=== PATIENT | female | born 1995 | race Caucasian/White ===

== ENCOUNTER 2024-01-19 15:49 | Day surgery (SDC) | payer OTHER ==
[2024-01-19] MEDS ORDERED: LIDOCAINE HCL 1% AMPUL 5 ML IJ ONE (15:50)
[2024-01-19] MEDS ORDERED: BUPIVACAINE 0.5% VIAL IJ ONE (15:50)
[2024-01-19] MEDS ORDERED: Depo-Medrol 40 MG/ML IM ONE (15:50)
[2024-01-19 17:14] LABS: HCG URINE TEST NEGATIVE (NEGATIVE)
--- NOTE | 2024-01-19 19:20 | XRAY ---
Indication: Right hip and greater trochanter bursa injection. Intraoperative fluoroscopy provided for 23 seconds. 2 digital spot image submitted for interpretation demonstrates needle tip projecting lateral to right greater trochanter. Second needle tip lateral to right femur neck. Small amount of contrast injected for all needle tip placement. Correlate with intraoperative findings/report.
--- NOTE | 2024-01-20 09:00 | XRAY ---
23 seconds of fluoroscopy used in surgery for a right intra-articular hip and right greater trochanteric bursa injections.
== END 2024-01-19 18:05 | disposition home or self-care (01) ==
LOC: SDC-PAIN 15:49
PROVIDERS: ATTEND Psychiatry & Neurology Pain Medicine
DX: M16.11 Unilateral primary osteoarthritis, right hip (principal); M70.61 Trochanteric bursitis, right hip; E11.9 Type 2 diabetes mellitus without complications
CPT/HCPCS: 20610; 73502; 77002; 81025; 82947; Q9966

== ENCOUNTER 2024-09-13 14:41 | Day surgery (SDC) | payer OTHER ==
[2024-09-13] MEDS ORDERED: LIDOCAINE HCL 1% 50 MG/5 ML VL IJ ONE (14:42)
[2024-09-13] MEDS ORDERED: BUPIVACAINE 0.5% VIAL IJ ONE (14:42)
[2024-09-13] MEDS ORDERED: Depo-Medrol 40 MG/ML IM ONE (14:42)
[2024-09-13 14:55] LABS: HCG URINE TEST NEGATIVE (NEGATIVE)
--- NOTE | 2024-09-13 16:59 | XRAY ---
Indication: Right greater trochanter bursa and right SI joint injection. Intraoperative fluoroscopy provided for 40 seconds. 2 digital spot image submitted for interpretation demonstrates posterior needle tip projecting right SI joint. Second needle tip lateral to right greater trochanter. Small amount of contrast injected for needle tip placement. Correlate with intraoperative findings/report.
--- NOTE | 2024-09-13 19:39 | XRAY ---
40 seconds of fluoroscopy were used in surgery for a right greater trochanteric bursa injection and a right sacroiliac joint injection.
== END 2024-09-13 16:38 | disposition home or self-care (01) ==
LOC: SDC-PAIN 14:41
PROVIDERS: ATTEND Psychiatry & Neurology Pain Medicine
DX: M46.1 Sacroiliitis, not elsewhere classified (principal); M70.61 Trochanteric bursitis, right hip; E11.9 Type 2 diabetes mellitus without complications